=== PATIENT | female | born 1965 | race Caucasian/White ===

== ENCOUNTER → 2018-03-17 03:54 | Outpatient (CLI) | payer BC, SELFPAY ==
[2018-03-17 13:10] LABS: Hemoglobin A1C 7.1 % (4.5-6.2)
[2018-03-17 13:19] LABS: ALT 58 U/L (12-78); AST 53 U/L (15-37); Albumin 3.6 g/dL (3.4-5.0); Alkaline Phosphatase 64 U/L (46-116); Anion Gap 7.8 mmol/L (3-11); BUN 11 mg/dL (7-18); Bilirubin, Total 0.3 mg/dL (0.2-1.0); CO2 30.2 mmol/L (21.0-32.0); CREATININE 0.88 mg/dL (0.55-1.02); Calcium 8.8 mg/dL (8.5-10.1); Chloride 103 mmol/L (98-107); Glucose 132 mg/dL (70-100); Potassium 4.6 mmol/L (3.5-5.1); Sodium 141 mmol/L (136-145); TSH 2.73 uIU/mL (0.358-3.74); Total Protein 7.4 g/dL (6.4-8.2)
[2018-03-17 15:47] LABS: Cholesterol 169 mg/dL (50-200); HDL Cholesterol 44 mg/dL (40-60); LDL CHOLESTEROL 99 mg/dL (<100); Triglyceride 193 mg/dL (30-150)
== END ==
PROVIDERS: PCP Family Medicine; Visit Provider Family Medicine
DX: E11.9 Type 2 diabetes mellitus without complications (principal); E78.5 Hyperlipidemia, unspecified; E03.9 Hypothyroidism, unspecified
CPT/HCPCS: 36415; 80053; 80061; 83721; 83036; 84443

== ENCOUNTER → 2018-03-17 15:12 | Outpatient (REF) | payer BC, SELFPAY ==
[2018-03-17 15:55] LABS: COMMENT (LAB VIEW ONLY) 75.32 mg/dL; Microalb ug/mg Crea 6.8 ug/mg Cr
== END ==
LOC: LBN 15:12
PROVIDERS: PCP Family Medicine; Visit Provider Family Medicine
DX: E11.9 Type 2 diabetes mellitus without complications (principal); E78.5 Hyperlipidemia, unspecified; E03.9 Hypothyroidism, unspecified
CPT/HCPCS: 82043; 82570

== ENCOUNTER 2018-06-14 01:27 | Outpatient (CLI) | payer BC, SELFPAY ==
[2018-06-14 11:43] LABS: Cholesterol 159 mg/dL (50-200); HDL Cholesterol 45 mg/dL (40-60); LDL CHOLESTEROL 85 mg/dL (<100); Triglyceride 187 mg/dL (30-150)
[2018-06-14 12:47] LABS: Hemoglobin A1C 7.1 % (4.5-6.2)
== END 2018-06-14 01:47 ==
PROVIDERS: PCP Family Medicine; Visit Provider Family Medicine
DX: E11.9 Type 2 diabetes mellitus without complications (principal); E78.5 Hyperlipidemia, unspecified
CPT/HCPCS: 36415; 80061; 83721; 83036

== ENCOUNTER 2018-09-20 01:24 | Outpatient (CLI) | payer BC, SELFPAY ==
[2018-09-20 11:25] LABS: Hemoglobin A1C 6.6 % (4.5-6.2)
== END 2018-09-20 01:44 ==
PROVIDERS: PCP Family Medicine; Visit Provider Family Medicine
DX: E11.9 Type 2 diabetes mellitus without complications (principal)
CPT/HCPCS: 36415; 83036

== ENCOUNTER 2019-03-16 02:18 | Outpatient (CLI) | payer BC, SELFPAY ==
[2019-03-16 13:04] LABS: Hemoglobin A1C 6.8 % (4.5-6.2)
[2019-03-16 13:21] LABS: ALT 37 U/L (12-78); AST 25 U/L (15-37); Albumin 3.5 g/dL (3.4-5.0); Alkaline Phosphatase 69 U/L (46-116); Anion Gap 8.5 mmol/L (3-11); BUN 16 mg/dL (7-18); Bilirubin, Total 0.3 mg/dL (0.2-1.0); CO2 28.5 mmol/L (21.0-32.0); CREATININE 0.75 mg/dL (0.55-1.02); Calcium 8.6 mg/dL (8.5-10.1); Chloride 103 mmol/L (98-107); Glucose 128 mg/dL (70-100); Potassium 4.5 mmol/L (3.5-5.1); Sodium 140 mmol/L (136-145); TSH 2.93 uIU/mL (0.36-3.74); Total Protein 7.1 g/dL (6.4-8.2)
[2019-03-16 14:31] LABS: COMMENT (LAB VIEW ONLY) 53.32 mg/dL; Microalb ug/mg Crea 10.3 ug/mg Cr
== END 2019-03-16 02:38 ==
PROVIDERS: PCP Family Medicine; Visit Provider Family Medicine
DX: E11.9 Type 2 diabetes mellitus without complications (principal); E03.9 Hypothyroidism, unspecified
CPT/HCPCS: 36415; 80053; 82043; 82570; 83036; 84443

== ENCOUNTER 2019-04-05 03:49 | Outpatient (CLI) | payer BC, SELFPAY ==
--- NOTE | 2019-04-05 09:00 | DI.MAMMO_ITS ---
SYMPTOM/DIAGNOSIS: SCREENING Z12.31 MAMMOGRAM: 04/05 Mammograms were interpreted according to the usual protocol including computer analysis with CAD system, tomosynthesis and C view imaging. The breasts are of moderate density with fairly symmetrical distribution of fibroglandular tissue. No dominant mass or clumped microcalcification is identified in either breast. The current examination is a baseline examination. CONCLUSION: No specific evidence of malignancy at this time. Routine screening examinations are suggested at yearly intervals due to the family history of breast carcinoma. Category 1, breast density category B. MQSA ASSESSMENT OF FINDINGS: Negative. Category 1. Patient will receive a letter notifying them of these results. BI-RADS category B. There are scattered areas of fibroglandular density.
== END 2019-04-05 04:09 ==
PROVIDERS: PCP Family Medicine; Visit Provider Family Medicine
DX: Z80.3 Family history of malignant neoplasm of breast
CPT/HCPCS: 77063; 77067

== ENCOUNTER 2019-07-18 01:20 | Outpatient (CLI) | payer BC, SELFPAY ==
[2019-07-18 09:48] LABS: Calculated LDL 69 mg/dL; Cholesterol 140 mg/dL (<200); HDL Cholesterol 40 mg/dL (40-60); Triglyceride 159 mg/dL (<150)
== END 2019-07-18 01:40 ==
PROVIDERS: PCP Family Medicine; Visit Provider Family Medicine
DX: E11.9 Type 2 diabetes mellitus without complications (principal)
CPT/HCPCS: 36415; 80061; 83036

== ENCOUNTER 2019-09-24 08:55 | Day surgery (SDC) | payer BC, SELFPAY ==
[2019-09-24 09:02] VITALS: BP 135/97; PULSE 100; RESP 18; TEMP 36.4; O2SAT 96
[2019-09-24] MEDS: Lidocaine 2% Multi-Dose 50 ML VIAL (13:53)
--- NOTE | 2019-09-24 14:09 | W.PM.DSUDISC ---
Discharge Plan Disposition Patient Disposition: HOME Condition: Good Discharge Details Reason For Visit: (L) TRIGGER THUMB Attending Provider: Joe Kaur Primary Care Provider: Earlene Blanco Home Meds and New Rx's Prescriptions: Continued omeprazole 20 mg capsule,delayed release(DR/EC) 20 mg PO DAILY Qty: 90 RF: 3 semaglutide 0.25 mg or 0.5 mg(2 mg/1.5 mL) pen injector 0.25 - 0.5 mg SC QWEEK Qty: 1.5 RF: 4 budesonide 32 mcg/actuation spray,non-aerosol 2 spray BUTCH DAILY Qty: 8.43 RF: 6 pravastatin 80 mg tablet 80 mg PO DAILY Qty: 90 RF: 4 (DME) pen needle, diabetic [Comfort EZ Pen Rembrandt] 31 gauge x 1/4 needle See Dose Instructions .ROUTE .MEDSUPPLY Qty: 100 RF: 2 (DME) lancets [OneTouch UltraSoft Lancets] misc See Dose Instructions .ROUTE .MEDSUPPLY Qty: 100 RF: 4 lisinopril 10 mg tablet 10 mg PO DAILY Qty: 90 RF: 4 levothyroxine 100 mcg tablet 100 mcg PO DAILY Qty: 90 RF: 4 (DME) OneTouch Verio Strip See Dose Instructions .ROUTE .MEDSUPPLY Qty: 100 RF: 2 (DME) blood-glucose meter Misc See Rx Instructions .ROUTE .MEDSUPPLY Qty: 1 RF: 0 Discharge Instructions Additional Instructions: Bend and straighten L thumb 10 times/hour when awake to prevent stiffness and swelling. Keep dressings dry and in place for 48 hours. Remove dressings after 48hours. May then shower or bathe and get incision wet. May leave incision uncovered when it is dry and sealed. Follow up with in 2 weeks for suture removal. Take tylenol or ibuprofen for pain. Referrals: Joe Kaur MD [ [facility] STAFF PHYSICIAN] - (f/u in 2 weeks.) Activity:: Activity as Tolerated Remove Dressings/Wound Care:: 48 hours Shower/Bathe:: 48 hours Diet:: As Tolerated Discharge Orders Discharge Orders: Discharge Order (Routine); Ordered 09/24/19 Ordered By: Joe Kaur DS: Diagnosis Discharge Diagnosis (1) Trigger thumb of left hand: Status: Acute
--- NOTE | 2019-09-24 16:28 | ROE_ITS ---
DATE OF PROCEDURE: September 24, 2019 PREOPERATIVE DIAGNOSIS: Trigger left thumb. POSTOPERATIVE DIAGNOSIS: Same. PROCEDURE: Tendon sheath incision for trigger left thumb. ANESTHESIA: Local infiltration with 1% Xylocaine solution followed by 0.5% Marcaine with an epinephr ine solution. SURGEON: Joe Kaur M.D. INDICATIONS: This is a 54-year-old white female with a painful left thumb. She said she began havin g pain associated with triggering of the thumb. This progressed to the point where her thumb was ji nful and she could not flex her thumb at all. She could also not extend it because of the pain. It was felt that the patient was getting so much swelling in the flexor tendon that the tendon was stuck in the proximal portion of the flexor sheath. The only way to correct this would be to incise the p roximal ko to allow the tendon to glide and slide without catching. The risks and complications of the procedure were explained to the patient in detail preoperatively. PROCEDURE: The patient was taken to the operating room on 09/24/2019. She was placed supine on the o perating table. The left hand and wrist were prepped and draped free in the usual sterile fashion. I infiltrated over the proximal flexion crease of the thumb with 1% Xylocaine solution. I then made an incision in line with the proximal flexion crease of the thumb, centered over the flexor sheath. The incision was carried down to the subcutaneous tissue. Blunt-tipped Littler scissors were then us ed to mobilize the soft tissues and digital nerve away from the proximal ko of the thumb. Small Heiss self-retraining retractors were inserted and the proximal ko of the flexor sheath of the th umb was clearly visualized. I incised the sheath under direct vision. I then extended the release o f the proximal ko proximally and distally with Littler scissors, completely releasing the proxima l ko of the flexor sheath. The retractors were removed and the patient was asked to actively fle x and extend her left thumb. She was now able to actively flex and extend her left thumb fully witho ut restriction or triggering. The wound was irrigated with saline solution. The wound margins were infiltrated with 0.5% Marcaine with an epinephrine solution and the skin edges were approximated with three interrupted #4-0 nylon sutures. The wound was dressed with Xeroform gauze, sterile gauze 4x4' s, wrapped with a 2-inch Marta bandage for a light pressure dressing. The patient tolerated the proc edure well and was discharged to the Day Surgery Unit in good condition. The patient was discharged home from the Day Surgery Unit with instructions to flex and extend her le ft thumb ten times an hour while awake to prevent swelling and decrease pain. Because of various ralf g sensitivities and medical conditions, she cannot take Tylenol or NSAID's. She was therefore instru cted to take 1 to 2 aspirin every four hours, as needed, for pain. She is to keep her dressings dry for 48 hours. After 48 hours she can remove her dressings, shower or bathe and get her incision wet. She can leave the incision uncovered when it is dry and sealed. She may use her left hand as much as discomfort allows. She should follow-up with Dr. Kaur in two weeks for suture removal in the of ayan.
== END 2019-09-24 14:31 | disposition home or self-care (01) ==
PROVIDERS: PCP Family Medicine; Visit Provider Orthopaedic Surgery
PROC: (CPT 26055; principal; 2019-09-24 10:00)
DX: M65.312 Trigger thumb, left thumb (principal)
CPT/HCPCS: 26055

== ENCOUNTER 2019-10-24 02:03 | Outpatient (CLI) | payer BC, SELFPAY ==
[2019-10-24 11:36] LABS: ALT 45 U/L (14-59); AST 25 U/L (15-37); Albumin 3.8 g/dL (3.4-5.0); Alkaline Phosphatase 66 U/L (46-116); Anion Gap 7.8 mmol/L (3-11); BUN 13 mg/dL (7-18); Bilirubin, Total 0.3 mg/dL (0.2-1.0); CO2 30.2 mmol/L (21.0-32.0); CREATININE 0.78 mg/dL (0.55-1.02); Calcium 9.4 mg/dL (8.5-10.1); Chloride 103 mmol/L (98-107); Glucose 133 mg/dL (74-106); Hemoglobin A1C 6.7 % (3.8-5.6); Potassium 4.8 mmol/L (3.5-5.1); Sodium 141 mmol/L (136-145); Total Protein 7.4 g/dL (6.4-8.2)
== END 2019-10-24 02:23 ==
PROVIDERS: PCP Family Medicine; Visit Provider Family Medicine
DX: E11.9 Type 2 diabetes mellitus without complications (principal)
CPT/HCPCS: 36415; 80053; 83036

== ENCOUNTER 2019-11-21 00:50 | Outpatient (CLI) | payer BC, SELFPAY ==
--- NOTE | 2019-11-21 07:45 | DI.RAD_ITS ---
EXAM: XR KNEE LT 3V AP,LAT,LUDIN CLINICAL HISTORY: acute on chronic left knee pain, h/o ACL repair,M25.562,G89.29. TECHNIQUE: 2D digital imaging was performed. COMPARISON: RIGHT KNEE 3 VIEWS from 05/21/2013 FINDINGS: BONES: No acute fracture is present. No bony destructive lesion is seen. Hardware in the distal femu r and proximal tibia related to prior ACL repair. There is spurring from the femoral condyles and ti bial plateaus. JOINTS: There is mild narrowing of the femoral tibial joint spaces. The knee is normally aligned. No joint effusion is seen. SOFT TISSUE: Normal. IMPRESSION: Postsurgical and degenerative changes.. DATA REPOSITORY: RADIATION DOSE DELIVERED:
== END 2019-11-21 01:10 ==
PROVIDERS: PCP Family Medicine; Visit Provider Nurse Practitioner Family
DX: M25.562 Pain in left knee (principal); G89.29 Other chronic pain; Z98.890 Other specified postprocedural states; M17.12 Unilateral primary osteoarthritis, left knee
CPT/HCPCS: 73562

== ENCOUNTER 2019-12-11 09:40 | Outpatient (CLI) | payer BC, SELFPAY ==
--- NOTE | 2019-12-11 10:03 | DI.RAD_ITS ---
EXAM: XR KNEE LT 1V CLINICAL HISTORY: pain TECHNIQUE: COMPARISON: CR XR KNEE LT 3V AP,LAT,LUDIN from 11/21/2019 FINDINGS: Single AP view was obtained and shows prior ACL repair with fixation screws in the tibia femur. Ther e are degenerative changes seen involving the tibial femoral joints with mild loss of the cartilagino us joint space and moderate hypertrophic spurring of the joint margins. IMPRESSION:
== END 2019-12-11 10:00 ==
PROVIDERS: PCP Family Medicine; Visit Provider Orthopaedic Surgery
DX: M25.562 Pain in left knee (principal); M17.12 Unilateral primary osteoarthritis, left knee
CPT/HCPCS: 73560

== ENCOUNTER 2020-07-02 03:28 | Outpatient (CLI) | payer BC, SELFPAY ==
[2020-07-02 12:28] LABS: COMMENT (LAB VIEW ONLY) 85.25 mg/dL; Microalb ug/mg Crea 10.1 ug/mg Cr
[2020-07-02 12:35] LABS: Hemoglobin A1C 7.2 % (<5.7)
[2020-07-02 12:40] LABS: ALT 45 U/L (14-59); AST 32 U/L (15-37); Albumin 3.8 g/dL (3.4-5.0); Alkaline Phosphatase 83 U/L (46-116); Anion Gap 9.5 mmol/L (3-11); BUN 18 mg/dL (7-18); Bilirubin, Total 0.3 mg/dL (0.2-1.0); CO2 27.5 mmol/L (21.0-32.0); CREATININE 0.83 mg/dL (0.55-1.02); Calcium 9.1 mg/dL (8.5-10.1); Calculated LDL 83 mg/dL (<100); Chloride 105 mmol/L (98-107); Cholesterol 180 mg/dL (<200); Glucose 143 mg/dL (74-106); HDL Cholesterol 47 mg/dL (40-60); Potassium 4.5 mmol/L (3.5-5.1); Sodium 142 mmol/L (136-145); TSH 3.76 uIU/mL (0.36-3.74); Total Protein 7.5 g/dL (6.4-8.2); Triglyceride 254 mg/dL (<150)
== END 2020-07-02 03:48 ==
PROVIDERS: PCP Family Medicine; Visit Provider Family Medicine
DX: E11.9 Type 2 diabetes mellitus without complications (principal); E03.9 Hypothyroidism, unspecified; E83.42 Hypomagnesemia
CPT/HCPCS: 36415; 80053; 80061; 82043; 82570; 83036; 83735; 84443

== ENCOUNTER 2020-07-07 09:44 | Outpatient (REF) | payer BC, SELFPAY ==
--- NOTE | 2020-07-07 09:00 | PAPFT_PTH ---
PATIENT: Cathleen Carter LOC: [facility] U#:[id number] AGE/SX: 55/F ROOM: RE07/07/[address]: Earlene Blanco MD : 1965 BED: DIS: 07/07/2020 SPEC #: [id number] RECD: 07/07/20 12:53 STATUS: MYLES REOmid #: [id number] JI: 07/07/20 09:[address]: Earlene Blanco DEPT: [facility] Cytology RECD BY: Deepa Novoa Tissues: 1 - CX/ENDOCX FOR PAP SMEARS Procedures: PAP THIN PREP/UVM Screening HPV DNA PROBE Comments: [id number]
== END 2020-07-07 10:04 ==
LOC: LBN 09:44
PROVIDERS: PCP Family Medicine; Visit Provider Family Medicine
DX: Z12.4 Encounter for screening for malignant neoplasm of cervix (principal); Z11.51 Encounter for screening for human papillomavirus (HPV)
CPT/HCPCS: 88142; 87624

== ENCOUNTER 2020-09-25 18:51 | Outpatient (CLI) | payer BC, SELFPAY ==
[2020-09-25 13:51] LABS: CREATININE 0.8 mg/dL (0.55-1.02); TSH 2.87 uIU/mL (0.36-3.74)
[2020-09-25 13:59] LABS: Hemoglobin A1C 7.6 % (<5.7)
[2020-09-25] MEDS: Normal Saline - Diluent 50 ML VIAL IV (15:20)
[2020-09-25] MEDS: Omnipaque 350 MG/ML 100 ML BTL IJ (15:24)
--- NOTE | 2020-09-25 15:25 | DI.CT_ITS ---
EXAM: CT HEAD WO/W CLINICAL HISTORY: PRESSURE IN HEAD,R51.9. TECHNIQUE: Imaging Protocol: Both noninfused and contrast infused CT scans of the brain were perform ed. IV Contrast Dose =100 cc Axial computed tomography images with coronal and sagittal reformatted images were created and review ed COMPARISON: No exams were available for comparison FINDINGS: There are no skull fractures nor fluid in the visualized paranasal sinuses. There is no evidence of intracranial hemorrhage, mass effect, or shift of midline structures. There are no extra-axial fluid collections. The ventricles are not enlarged or shifted and there is no blo od within the ventricular system nor within the basal cisterns. There are no ring enhancing lesions in the brain and there is no abnormal meningeal enhancement, foca l or diffuse. No evidence of obvious aneurysm nor vascular malformation. IMPRESSION: No significant intracranial findings. No significant enhancing intracranial findings. RADIATION DOSE DELIVERED: 1,523.06mGy.cm Total DLP DATA REPOSITORY: All CT scans at this facility are submitted to the National Radiology Data Registry (NRDR) Dose Index Registry (DIR) with the [employer] ([employer]). RADIATION OPTIMIZATION: All CT scans at this facility use at least one of these dose optimization te chniques: automated exposure control; mA and/or kV adjustment per patient size (includes targeted exa ms where dose is matched to clinical indication); or iterative reconstruction.
== END 2020-09-25 18:52 ==
PROVIDERS: PCP Family Medicine; Visit Provider Otolaryngology
DX: R51.9 Headache, unspecified (principal); E11.9 Type 2 diabetes mellitus without complications; E03.9 Hypothyroidism, unspecified
CPT/HCPCS: 70470; 82565; 83036; 84443; J3490

== ENCOUNTER 2020-11-24 09:33 | Outpatient (CLI) | payer BC, SELFPAY ==
[2020-11-25 12:48] LABS: COVID-19 RT-PCR UVMMC Result Negative (Negative)
== END 2020-11-24 09:34 | disposition home or self-care (01) ==
PROVIDERS: PCP Family Medicine; Visit Provider Family Medicine
DX: Z20.822 Contact with and (suspected) exposure to COVID-19 (principal)
CPT/HCPCS: U0003

== ENCOUNTER 2021-01-26 03:19 | Outpatient (CLI) | payer BC, SELFPAY ==
[2021-01-26 12:50] LABS: Hemoglobin A1C 8.4 % (<5.7)
[2021-01-26 13:39] LABS: BUN 15 mg/dL (7-18); CREATININE 0.8 mg/dL (0.55-1.02); Calcium 9.2 mg/dL (8.5-10.1); Chloride 103 mmol/L (98-107); Glucose 199 mg/dL (74-106); Potassium 4.5 mmol/L (3.5-5.1); Sodium 141 mmol/L (136-145)
== END 2021-01-26 03:20 | disposition home or self-care (01) ==
LOC: LOS 03:20
PROVIDERS: PCP Family Medicine; Visit Provider Family Medicine
DX: E11.9 Type 2 diabetes mellitus without complications (principal)
CPT/HCPCS: 36415; 80048; 83036

== ENCOUNTER 2021-04-23 01:34 | Outpatient (CLI) | payer BC, SELFPAY ==
[2021-04-23 12:51] LABS: ALT 47 U/L (14-59); AST 29 U/L (15-37); Albumin 3.3 g/dL (3.4-5.0); Alkaline Phosphatase 67 U/L (46-116); Anion Gap 7.4 mmol/L (3-11); BUN 15 mg/dL (7-18); Bilirubin, Total 0.4 mg/dL (0.2-1.0); CO2 29.6 mmol/L (21.0-32.0); CREATININE 0.8 mg/dL (0.55-1.02); Calcium 8.8 mg/dL (8.5-10.1); Chloride 106 mmol/L (98-107); Glucose 139 mg/dL (74-106); Potassium 4.4 mmol/L (3.5-5.1); Sodium 143 mmol/L (136-145); Total Protein 6.8 g/dL (6.4-8.2)
[2021-04-23 13:07] LABS: Hemoglobin A1C 7.7 % (<5.7)
[2021-04-23 13:49] LABS: COMMENT (LAB VIEW ONLY) 157.94 mg/dL; Microalb ug/mg Crea 15.1 ug/mg Cr
== END 2021-04-23 01:35 | disposition home or self-care (01) ==
LOC: LOS 01:34
PROVIDERS: PCP Family Medicine; Visit Provider Family Medicine
DX: E11.9 Type 2 diabetes mellitus without complications (principal)
CPT/HCPCS: 36415; 80053; 82043; 82570; 83036

== ENCOUNTER 2021-07-01 01:29 | Outpatient (CLI) | payer BC, SELFPAY ==
[2021-07-01 13:31] LABS: Hemoglobin A1C 7.2 % (<5.7)
[2021-07-01 13:58] LABS: Calculated LDL 94 mg/dL (<100); Cholesterol 176 mg/dL (<200); HDL Cholesterol 46 mg/dL (40-60); TSH 5.21 uIU/mL (0.36-3.74); Triglyceride 183 mg/dL (<150); Vitamin B12 488 pg/mL (193-986)
== END 2021-07-01 01:30 | disposition home or self-care (01) ==
LOC: LOS 01:30
PROVIDERS: PCP Family Medicine; Visit Provider Family Medicine
DX: E03.9 Hypothyroidism, unspecified; E78.5 Hyperlipidemia, unspecified; E11.9 Type 2 diabetes mellitus without complications; G62.9 Polyneuropathy, unspecified
CPT/HCPCS: 36415; 80061; 82607; 83036; 84443

== ENCOUNTER 2021-08-10 01:57 | Outpatient (CLI) | payer BC, SELFPAY | END 2021-08-10 02:17 | PROVIDERS: PCP Family Medicine; Visit Provider Family Medicine ==

== ENCOUNTER 2021-08-21 01:51 | Outpatient (CLI) | payer BC, SELFPAY ==
[2021-08-21 13:48] LABS: TSH 2.11 uIU/mL (0.36-3.74)
== END 2021-08-21 01:52 | disposition home or self-care (01) ==
LOC: LBO 01:51
PROVIDERS: PCP Family Medicine; Visit Provider Family Medicine
DX: E03.9 Hypothyroidism, unspecified (principal)
CPT/HCPCS: 36415; 84443

== ENCOUNTER → 2022-04-20 01:06 | Outpatient (CLI) | payer BC, SELFPAY ==
--- NOTE | 2022-04-20 07:00 | DI.MAMMO_ITS ---
Exam(s) MG MAMMO SCREENING 60 MIN DUR EXAM: MG MAMMO SCREENING 60 MIN DUR CLINICAL HISTORY: screening,z12.39. TECHNIQUE: Bilateral full field digital CC and MLO mammographic images were obtained with 3D tomosyn thesis and utilizing computer aided detection (CAD). COMPARISON: Prior mammograms were reviewed, the most recent being April 2019. FINDINGS: There has been no significant change in the appearance and distribution of the fibroglandular tissue which is mostly fatty. In the right breast there is a small benign-appearing group of my 3 microcalcifications located later al of center, not evident on prior mammogram of 2019 (which is the most recent mammogram). This grou p has benign appearance. It is possibly within a small nodule (which would probably be a small fibro adenoma). No other significant right breast findings. In the opposite-left breast there are 2 small round nodules seen on 3D cc imaging lateral of center w hich were not evident on the prior 2019 mammogram. These both measure 3 millimeters. There are no new spiculated masses in either breast. There is no new significant architectural distortion nor skin thickening-retraction. IMPRESSION: New benign-appearing findings in both breasts as described above. Recommend follow-up bilateral fabricio st ultrasound. BI-RADS Category 0 - Assessment Incomplete: Need additional imaging evaluation Breast Density - Category B - Scattered areas of fibroglandular density Breast density Category C or D implies that the patient has dense breast tissue. Dense breast tissue can make it harder to find cancer on a mammogram. Dense breast tissue is also associated with an incr eased risk of breast cancer. This information about the result of the mammogram report was provided to the patient to raise their awareness. Use this report when you speak with the patient about their risks for breast cancer, which includes their family history. At that time, you may recommend additional screening tests (Ultrasoun d or MRI) as these tests may add significant information. A negative radiographic report should not delay biopsy if a dominant or clinically suspicious mass is present. Up to ten percent of cancers are not identified on mammography. A negative report may reinforce clinical impression. Adenosis and dense breasts may obscure an underlying neoplasm. False positive reports average 6 to 10%. Patient will receive a letter notifying them of these results.
== END ==
PROVIDERS: PCP Nurse Practitioner Family; Visit Provider Family Medicine
DX: Z12.31 Encounter for screening mammogram for malignant neoplasm of breast (principal); R92.8 Other abnormal and inconclusive findings on diagnostic imaging of breast
CPT/HCPCS: 77063; 77067

== ENCOUNTER → 2022-04-29 03:37 | Outpatient (CLI) | payer BC, SELFPAY ==
--- NOTE | 2022-04-29 | DI.US_ITS ---
Exam(s) MG MAMMO DIAGNOSTIC UNI US BREAST RT LIMITED US BREAST LT LIMITED EXAM: MG MAMMO DIAGNOSTIC UNI and U/S breast bilateral limited CLINICAL HISTORY: RT BREAST CC PER RADIOLOGIST AFTER US. TECHNIQUE: Craniocaudal and mediolateral oblique Full Field Digital Mammography views of the right b reast with Computer Aided Diagnosis followed by Tomosynthesis and bilateral breast ultrasound. COMPARISON: Comparison is made with prior examinations. FINDINGS: Mammography/Tomosynthesis: Masses/Architectural Distortion: Additional view of the right breast shows 3 punctate benign-appearin g calcifications. There is persistent suggestion of of an associated small round well-circumscribed 3 mm nodule. Microcalcifictions: No suspicious pleomorphic-type are seen. Skin Thickening/Nipple Retraction: None. Limited bilateral breast US: No cystic or solid masses are seen in the left breast. Echotexture: Normal appearance of the glandular tissue. Shadowing: No suspicious foci. Cyst: None. Solid lesions: There is a 0.5 x 0.5 x 0.7 cm well-circumscribed hyperechoic nodule in the upper outer quadrant of the right breast. Its appearance is suggestive of a benign lesion such as a lipoma. Ductal dilation: None. IMPRESSION: 1. No evidence of malignancy is noted. 2. A six-month follow-up mammogram is requested for re-evaluation. 3. The findings were discussed with the patient on the date of the examination. BI-RADS Category 3 - 6 month - Probably Benign Finding: Recommend follow-up imaging in 6 months Breast Density - Category B - Scattered areas of fibroglandular density Breast density Category C or D implies that the patient has dense breast tissue. Dense breast tissue can make it harder to find cancer on a mammogram. Dense breast tissue is also associated with an incr eased risk of breast cancer. This information about the result of the mammogram report was provided to the patient to raise their awareness. Use this report when you speak with the patient about their risks for breast cancer, which includes their family history. At that time, you may recommend additional screening tests (Ultrasoun d or MRI) as these tests may add significant information. A negative radiographic report should not delay biopsy if a dominant or clinically suspicious mass is present. Up to ten percent of cancers are not identified on mammography. A negative report may reinforce clinical impression. Adenosis and dense breasts may obscure an underlying neoplasm. False positive reports average 6 to 10%. Patient will receive a letter notifying them of these results.
== END ==
PROVIDERS: PCP Nurse Practitioner Family; Visit Provider Family Medicine
DX: Z12.31 Encounter for screening mammogram for malignant neoplasm of breast (principal); R92.8 Other abnormal and inconclusive findings on diagnostic imaging of breast; N63.11 Unspecified lump in the right breast, upper outer quadrant
CPT/HCPCS: 76642; 77061; 77065; G0279

== ENCOUNTER 2022-05-26 03:30 | Outpatient (CLI) | payer BC, SELFPAY ==
[2022-05-26 12:46] LABS: ALT 69 U/L (14-59); AST 52 U/L (15-37); Albumin 3.3 g/dL (3.4-5.0); Alkaline Phosphatase 73 U/L (46-116); Anion Gap 6.7 mmol/L (3-11); BUN 7 mg/dL (7-18); Bilirubin, Total 0.6 mg/dL (0.2-1.0); CO2 28.3 mmol/L (21.0-32.0); CREATININE 0.8 mg/dL (0.55-1.02); Calcium 8.9 mg/dL (8.5-10.1); Calculated LDL 80 mg/dL (<100); Chloride 104 mmol/L (98-107); Cholesterol 152 mg/dL (<200); Estimated GFR 85.35 (mL/min/1.73m2); Glucose 159 mg/dL (74-106); HDL Cholesterol 46 mg/dL (40-60); Potassium 3.7 mmol/L (3.5-5.1); Sodium 139 mmol/L (136-145); TSH (W/Ref FT4) 3.22 uIU/mL (0.36-3.74); Total Protein 7.5 g/dL (6.4-8.2); Triglyceride 132 mg/dL (<150)
[2022-05-26 12:49] LABS: COMMENT (LAB VIEW ONLY) 144.64 mg/dL; Microalb ug/mg Crea 3.7 ug/mg Cr
[2022-05-27 08:57] LABS: HIV-1/2 Ag & Ab Screen Negative (Negative)
[2022-05-27 09:22] LABS: Hepatitis C Ab w Rflx HCV PCR Negative (Negative)
== END 2022-05-26 03:31 | disposition home or self-care (01) ==
LOC: LOS 03:30
PROVIDERS: PCP Nurse Practitioner Family; Visit Provider Family Medicine
DX: I10 Essential (primary) hypertension (principal); E03.9 Hypothyroidism, unspecified; E11.9 Type 2 diabetes mellitus without complications; I87.2 Venous insufficiency (chronic) (peripheral); Z11.59 Encounter for screening for other viral diseases; Z11.4 Encounter for screening for human immunodeficiency virus [HIV]
CPT/HCPCS: 36415; 80053; 80061; 86803; 87389; 82043; 82570; 83036; 84443

== ENCOUNTER 2022-06-08 06:13 | Day surgery (SDC) | payer BC, SELFPAY ==
[2022-06-08 06:31] VITALS: BP 131/81; PULSE 100; RESP 20; TEMP 36.4; O2SAT 95
--- NOTE | 2022-06-08 07:16 | W.PM.DSUDISC ---
Date of service: 06/08/22 Time of Service: 07:18 Discharge Plan Disposition Patient Disposition: HOME Condition: Good Discharge Details Reason For Visit: Right trigger thumb Attending Provider: Micah Bear Primary Care Provider: Ernestina Rey Home Meds and New Rx's Prescriptions: Continued aspirin 81 mg tablet,delayed release (DR/EC) 81 mg PO DAILY Qty: 30 0RF Rx Instructions: not sent pravastatin 80 mg tablet 80 mg PO DAILY Qty: 90 3RF Rx Instructions: /take one tablet daily omeprazole 20 mg capsule,delayed release(DR/EC) 20 mg PO DAILY Qty: 90 3RF levothyroxine 125 mcg tablet 125 mcg PO DAILY Qty: 90 3RF (DME) pen needle, diabetic [Comfort EZ Pen [place]] 31 gauge x 1/4 needle See Dose Instructions .ROUTE .MEDSUPPLY Qty: 100 2RF Dose Instruction: As directed Rx Instructions: As directed (DME) blood-glucose meter Misc See Rx Instructions .MEDSUPPLY Qty: 1 0RF Rx Instructions: One Touch Ultra Soft lancing device/ use daily as directed (DME) OneTouch Verio test strips Strip See Dose Instructions .ROUTE .MEDSUPPLY Qty: 100 4RF Dose Instruction: As directed Rx Instructions: check blood sugar bid (DME) lancets [OneTouch Delica Lancets] 33 gauge misc See Rx Instructions .ROUTE .MEDSUPPLY Qty: 100 4RF Rx Instructions: DX. E11.9/ test once daily/extra fine lancets lisinopril 10 mg tablet 10 mg PO DAILY Qty: 90 4RF lidocaine 5 % adhesive patch,medicated 1 patch TP DAILY PRN (Reason: pain) Qty: 30 0RF Rx Instructions: Leave on most painful area for up to 12hrs semaglutide 2 mg/dose (8 mg/3 mL) pen injector 2 mg subcut QWEEK Qty: 3 3RF Discharge Instructions Stand Alone Forms: Marianela Estes Finger Mo Activity:: Elevate Remove Dressings/Wound Care:: 48 hours Shower/Bathe:: 48 hours Diet:: As Tolerated Discharge Orders Discharge Orders: Discharge Order (Routine); Ordered 06/08/22 Ordered By: Gissel Sumner
[2022-06-08] MEDS: Sodium Bicarbonate 50 MEQ/50 ML VIAL (07:33)
[2022-06-08 07:43] VITALS: BP 128/82; PULSE 99; RESP 18; TEMP 36.6; O2SAT 93
--- NOTE | 2022-06-08 16:59 | W.PM.OP ---
Date of service: 06/08/22 Time of Service: 07:40 Operative Note Operative Note DATE OF PROCEDURE: 06/08/22 PRE-OP DIAGNOSIS: Right Trigger Thumb POST-OP DIAGNOSIS: same PROCEDURE: Trigger Finger Release - Right Thumb SURGEON: Micah Bear ANESTHESIA TYPE: Local By Surgeon Refer to Anesthesia Record ESTIMATED BLOOD LOSS: 0 PATHOLOGY: none sent COMPLICATIONS: None Patient was transported to: same day Patient's condition: stable Indications: I have seen Cathleen in clinic for symptoms of a trigger finger. The catching, clicking, locking, and pain limited function. The diagnosis of trigger finger was evident. The symptoms had not responded to conservative measures. I discussed trigger finger release with the patient. I reviewed the risks of the procedure to include, but not limited to, bleeding, infection, pain, stiffness, incomplete release, damage to nerves or vessels, continued catching, recurrence. Despite these risks, the patient elected to proceed. Findings: There was a tightened A1 ko which was released. The flexor tendons were inspected and the patient was able to move the finger without any catching, clicking, or locking. Procedure Description: Cathleen was greeted in the preoperative holding area where the correct side was identified and marked. The consent was reviewed with the patient and signed. All questions were answered. She was taken back to the operating room. The patient was placed into the supine position on the operating room table with the right arm on an arm board. All bony prominences were well padded. No prophylactic antibiotics were administered since this was a clean, elective hand surgical case. The right arm was then prepped with Chloraprep and draped in a standard fashion with stockinette and extremity drape. A timeout to confirm correct identity, side and site, procedure, allergies, anesthesia, and medical concerns was performed. The surgical site was marked as a longitudinal incision directly over the A1 ko of the involved digit. This was confirmed with palpation during finger flexion. This area, overlying the metacarpal head, was then anesthetized with 1% Lidocaine. The patient tolerated this well and once the anesthetic had setup, the procedure began. A longitudinal incision was made through skin only, approximately 1cm. The deep tissues were dissected bluntly. Once the A1 ko and flexor tendons were identified the soft tissue including neurovascular structures were retracted medially and laterally. There were no crossing structures over the A1 ko. The proximal edge of the ko was identified and the ko was incised with tenotomy scissors. There was a release of the tendons once this was fully released. The tendons were then removed from the wound and inspected. Excess synovium was resected. The tendons were then returned and the patient was asked to move the finger into deep flexion and back to extension. There was no recreation of the pre-operative symptoms. The hand was then once more inspected for any A0 ko or area of possible constriction. The wound was then irrigated and the skin was closed with a 4-0 Nylon. This was dressed with gauze and a Conform dressing. The patient tolerated the procedure well and was returned to the Same Day Surgery area in a stable condition suffering no known complication.
== END 2022-06-08 08:17 | disposition home or self-care (01) ==
PROVIDERS: PCP Nurse Practitioner Family; Visit Provider Student in an Organized Health Care Education/Training Program
PROC: (CPT 26055; principal; 2022-06-08 07:30)
DX: M65.311 Trigger thumb, right thumb (principal)
CPT/HCPCS: 26055

== ENCOUNTER 2022-10-15 00:02 | Outpatient (CLI) | payer BC, SELFPAY ==
--- NOTE | 2022-10-15 07:38 | DI.US_ITS ---
Exam(s) US BREAST RT LIMITED MG MAMMO DIAGNOSTIC BI EXAM: MG MAMMO DIAGNOSTIC BI and U/S breast RT limited CLINICAL HISTORY: abnormal mammo 3-6 mo,r92.8,z09, rt breast nodule. TECHNIQUE: Craniocaudal and mediolateral oblique Full Field Digital Mammography views with Computer Aided Diagnosis followed by Tomosynthesis and right breast ultrasound. COMPARISON: Comparison is made with prior examinations. FINDINGS: Mammography/Tomosynthesis: Masses/Architectural Distortion: No suspicious nodules are seen. Microcalcifictions: No suspicious pleomorphic-type are seen. The 3 punctate calcifications in the upp er outer right breast are stable. Skin Thickening/Nipple Retraction: None. Limited right breast US: Echotexture: Normal appearance of the glandular tissue. Shadowing: The 2 calcifications at the 10 o'clock position of the right breast 8 cm from the nipple a re unchanged. Cyst: None. Solid lesions: The well-circumscribed ovoid echogenic nodule at the 10 o'clock position 8 cm from the nipple is unchanged measuring 0.5 x 0.4 x 0.7 cm. It is most suggestive of a benign lesion such as lipoma. Ductal dilation: None. IMPRESSION: 1. No evidence of malignancy is noted. 2. Unless there is more urgent need, follow-up screening mammography is recommended, as per [employer] guidelines. 3. The findings were discussed with the patient on the date of the examination. BI-RADS Category 2 - Benign Findings Breast Density - Category A - Almost entirely fatty Breast density Category C or D implies that the patient has dense breast tissue. Dense breast tissue can make it harder to find cancer on a mammogram. Dense breast tissue is also associated with an incr eased risk of breast cancer. This information about the result of the mammogram report was provided to the patient to raise their awareness. Use this report when you speak with the patient about their risks for breast cancer, which includes their family history. At that time, you may recommend additional screening tests (Ultrasoun d or MRI) as these tests may add significant information. A negative radiographic report should not delay biopsy if a dominant or clinically suspicious mass is present. Up to ten percent of cancers are not identified on mammography. A negative report may reinforce clinical impression. Adenosis and dense breasts may obscure an underlying neoplasm. False positive reports average 6 to 10%. Patient will receive a letter notifying them of these results.
== END 2022-10-15 00:22 ==
LOC: DI 00:02
PROVIDERS: PCP Nurse Practitioner Family; Visit Provider Family Medicine
DX: R92.8 Other abnormal and inconclusive findings on diagnostic imaging of breast (principal); N63.11 Unspecified lump in the right breast, upper outer quadrant; R92.1 Mammographic calcification found on diagnostic imaging of breast; D24.1 Benign neoplasm of right breast
CPT/HCPCS: 76642; 77062; 77066; G0279

== ENCOUNTER 2023-05-31 02:46 | Outpatient (CLI) | payer BC, SELFPAY ==
[2023-05-31 12:40] LABS: Hemoglobin A1C 6.9 % (<5.7)
== END 2023-05-31 02:47 | disposition home or self-care (01) ==
PROVIDERS: PCP Nurse Practitioner Family; Visit Provider Nurse Practitioner Family
DX: E11.40 Type 2 diabetes mellitus with diabetic neuropathy, unspecified (principal)
CPT/HCPCS: 36415; 83036

== ENCOUNTER 2023-08-23 03:46 | Outpatient (CLI) | payer BC, SELFPAY ==
[2023-08-23 15:28] LABS: Anion Gap 7.8 mmol/L (3-11); BUN 12 mg/dL (7-18); CO2 28.2 mmol/L (21.0-32.0); CREATININE 0.9 mg/dL (0.55-1.02); Calcium 9.2 mg/dL (8.5-10.1); Calculated LDL 78 mg/dL (<100); Chloride 102 mmol/L (98-107); Cholesterol 167 mg/dL (<200); Estimated GFR 73.64 (mL/min/1.73m2); Glucose 187 mg/dL (74-106); HDL Cholesterol 54 mg/dL (40-60); Potassium 3.9 mmol/L (3.5-5.1); Sodium 138 mmol/L (136-145); TSH (W/Ref FT4) 1.64 uIU/mL (0.36-3.74); Triglyceride 177 mg/dL (<150)
== END 2023-08-23 03:47 | disposition home or self-care (01) ==
PROVIDERS: PCP Nurse Practitioner Family; Visit Provider Nurse Practitioner Family
DX: Z00.00 Encounter for general adult medical examination without abnormal findings (principal)
CPT/HCPCS: 36415; 80048; 80061; 84443

== ENCOUNTER → 2023-12-14 04:12 | Outpatient (CLI) | payer BC, SELFPAY ==
--- NOTE | 2023-12-14 07:15 | DI.MAMMO_ITS ---
Exam(s) MAMMO SCREENING EXAM: MAMMO SCREENING CLINICAL HISTORY: screening,z12.39 TECHNIQUE: Bilateral full field digital CC and MLO mammographic images were obtained with 3D tomosyn thesis and utilizing computer aided detection (CAD). COMPARISON: Available for comparison. FINDINGS: Masses/Architectural Distortion: Stable well-circumscribed nodules are seen in the breast. No new no dules are seen. No areas of architectural distortion are seen. Microcalcifications: No suspicious pleomorphic-type are seen. Skin Thickening/Nipple Retraction: None. IMPRESSION: 1. No significant interval change with no specific features of malignancy noted. 2. Unless there is more urgent need, screening mammography is recommended, as per [employer] guidelines. BI-RADS Category 2 - Benign Findings Breast Density - Category A - Almost entirely fatty Breast density category C or D implies that the patient has dense breast tissue. Dense breast tissue is very common and is not abnormal but dense breast tissue can make it harder to find cancer on a ma mmogram. Also, dense breast tissue may increase their breast cancer risk. This information about the result of the mammogram report was provided to the patient to raise their awareness. Use this report when you speak with the patient about their risks for breast cancer, which includes their family hist ory. At that time, you may recommend for more screening tests (Ultrasound or MRI) as they might be us eful based on their risk. A negative radiographic report should not delay biopsy if a dominant or clinically suspicious mass is present. Up to ten percent of cancers are not identified on mammography. A negative report may reinforce clinical impression. Adenosis and dense breasts may obscure an underlying neoplasm. False positive reports average 6 to 10%. Patient will receive a letter notifying them of these results.
== END ==
PROVIDERS: PCP Nurse Practitioner Family; Visit Provider Nurse Practitioner Family
DX: Z12.31 Encounter for screening mammogram for malignant neoplasm of breast (principal)
CPT/HCPCS: 77063; 77067

== ENCOUNTER 2024-01-26 11:06 | Outpatient (CLI) | payer BC, SELFPAY ==
--- NOTE | 2024-01-26 10:15 | DI.RAD_ITS ---
Exam(s) XR HAND RT COMPLETE EXAM: XR HAND RT COMPLETE CLINICAL HISTORY: thumb pain. TECHNIQUE: 2D digital imaging was performed of the right hand. Three images were obtained. AP, late ral and oblique views were obtained. COMPARISON: CR RIGHT HAND COMPLETE from 02/02/2017 FINDINGS: BONES: No acute fracture is present. No bony destructive lesion is seen. JOINTS: No dislocation present. There are mild degenerative changes seen in the hand characterized by joint space narrowing and osteophytes. The findings are seen at the 1st CMC joint and the interphal angeal joints of the fingers. SOFT TISSUE: Normal. IMPRESSION: Mild degenerative changes seen at the 1st CMC joint. DATA REPOSITORY: RADIATION DOSE DELIVERED:
== END 2024-01-26 11:07 | disposition home or self-care (01) ==
LOC: DIORS 11:06
PROVIDERS: PCP Nurse Practitioner Family; Visit Provider Physician Assistant
DX: M79.644 Pain in right finger(s) (principal)
CPT/HCPCS: 73130

== ENCOUNTER 2024-02-07 04:55 | Outpatient (CLI) | payer BC, SELFPAY ==
[2024-02-15 16:23] LABS: HBs Antibody, Quant <3.1 mIU/mL (See Note); Hep B Surface Ab Negative (See Note); Hepatitis B Core Antibody Negative (Negative); Hepatitis B Surface Antigen Negative (Negative)
== END 2024-02-07 04:56 | disposition home or self-care (01) ==
LOC: LBO 04:55
PROVIDERS: PCP Nurse Practitioner Family; Visit Provider Nurse Practitioner Family
DX: Z11.59 Encounter for screening for other viral diseases (principal)
CPT/HCPCS: 36415; 86704; 86706; 87340

== ENCOUNTER 2024-06-11 18:37 | Outpatient (REF) | payer BC, SELFPAY ==
[2024-06-11 21:28] LABS: COMMENT (LAB VIEW ONLY) 109.46 mg/dL; Microalb ug/mg Crea 17.6 ug/mg Cr
== END 2024-06-11 18:38 | disposition home or self-care (01) ==
LOC: LBN 18:37
PROVIDERS: PCP Nurse Practitioner Family; Visit Provider Nurse Practitioner Family
DX: E11.9 Type 2 diabetes mellitus without complications (principal)
CPT/HCPCS: 82043; 82570

== ENCOUNTER 2024-09-04 00:49 | Outpatient (CLI) | payer BC, SELFPAY ==
[2024-09-04 12:24] LABS: Abs Immature Grans 0.05 10^3/uL (0.0-0.06); Absolute Basophil Count 0.06 10^3/uL (0.0-0.2); Absolute Eosinophil Count 0.42 10^3/uL (0.0-0.7); Absolute Lymphocyte Count 1.94 10^3/uL (1.2-3.4); Absolute Monocyte Count 0.65 10^3/uL (0.1-0.8); Absolute Neutrophil Count 4.75 10^3/uL (1.2-6.7); Basophils % 0.8 %; Eosinophils % 5.3 %; HCT 45.8 % (36.0-46.0); HGB 14.4 g/dL (11.2-15.7); Immature Grans % 0.6 %; Lymphocytes % 24.7 %; MCH 29.5 pg (27.0-33.0); MCHC 31.4 % (32.0-36.0); MCV 94 fL (80-95); MPV 10.3 fL (8.0-11.0); Monocytes % 8.3 %; Neutrophils % 60.3 %; Platelet Count 218 10^3/uL (130-400); RBC 4.88 10^6/uL (3.93-5.22); RDW 14.4 % (11.7-14.6); RDW-SD 49.8 fL; WBC 7.87 10^3/uL (4.4-10.8)
[2024-09-04 12:50] LABS: ALT 71 U/L (14-59); AST 61 U/L (15-37); Albumin 3.3 g/dL (3.4-5.0); Alkaline Phosphatase 77 U/L (46-116); Anion Gap 4.2 mmol/L (3-11); BUN 9 mg/dL (7-18); Bilirubin, Total 0.46 mg/dL (0.2-1.0); CO2 32.8 mmol/L (21.0-32.0); CREATININE 0.8 mg/dL (0.55-1.02); Calcium 9.4 mg/dL (8.5-10.1); Chloride 105 mmol/L (98-107); Glucose 170 mg/dL (74-106); Sodium 142 mmol/L (136-145); TSH (W/Ref FT4) 0.72 uIU/mL (0.36-3.74); Total Protein 7.7 g/dL (6.4-8.2)
[2024-09-04 13:27] LABS: Hemoglobin A1C 8.6 % (<5.7)
== END 2024-09-04 00:50 | disposition home or self-care (01) ==
PROVIDERS: PCP Nurse Practitioner Family; Visit Provider Nurse Practitioner Family
DX: E11.40 Type 2 diabetes mellitus with diabetic neuropathy, unspecified (principal); E03.9 Hypothyroidism, unspecified
CPT/HCPCS: 36415; 80053; 83036; 84443; 85025

== ENCOUNTER 2025-05-23 12:28 | Outpatient (REF) | payer MEDICAID, SELFPAY ==
--- NOTE | 2025-05-23 11:40 | PAPFT_PTH ---
PATIENT: Cathleen Carter LOC: [facility] U#:[id number] AGE/SX: 60/F ROOM: RE05/23/[address]: PAWAN Iqbal : 1965 BED: DIS: 05/23/2025 SPEC #: [id number] RECD: 05/23/25 18:05 STATUS: MYLES NG #: [id number] JI: 05/23/25 11:[address]: Ernestina Rey DEPT: [facility] Cytology RECD BY: Deepa Novoa Tissues: 1 - CX/ENDOCX FOR PAP SMEARS Procedures: PAP THIN PREP/UVM Screening HPV DNA PROBE Comments: [id number] (HPV 16 & 18/45)
== END 2025-05-23 12:29 | disposition home or self-care (01) ==
LOC: LBN 12:28
PROVIDERS: PCP Nurse Practitioner Family; Visit Provider Nurse Practitioner Family
DX: Z12.4 Encounter for screening for malignant neoplasm of cervix (principal)
CPT/HCPCS: 88142; 87624

== ENCOUNTER 2025-05-27 06:12 | Day surgery (SDC) | payer MEDICAID, SELFPAY ==
[2025-05-27 06:15] VITALS: BP 147/83; PULSE 104; RESP 16; TEMP 36.5; O2SAT 95
[2025-05-27] MEDS: Lactated Ringers 1,000 ML 80 ML IV (06:50)
--- NOTE | 2025-05-27 07:09 | ANES.PREOP_ITS ---
General Info Date of Service Date Performed: 05/27/25 Height: 4 ft 11.5 in Weight: 134 kg Body Mass Index (BMI): 58.6 Surgical Procedure: Operation Date: 05/27/25 07:35 Proposed Procedure Side Surgeon p Colonoscopy Tessie Montalvo MD Meds Allergies and Home Medications Allergies Allergy/AdvReac Type Severity Reaction Status Date / Time empagliflozin (From AdvReac Intermediate Yeast Verified 05/27/25 06:32 Jardiance) infections Home Medication ?Medication ?Instructions ?Recorded aspirin 81 mg tablet,delayed 81 mg PO DAILY #30 tabs 0 04/27/21 release lisinopril 10 mg tablet 10 mg PO DAILY #90 tabs 08/02 10/23 levothyroxine 125 mcg tablet 125 mcg PO DAILY #90 tabs 09/06/24 omeprazole 20 mg capsule,delayed 20 mg PO DAILY #90 ta bs 01/22/25 release glipizide 10 mg tablet 10 mg PO DAILY #90 tabs 03/01 10/23 bisacodyl 5 mg tablet,delayed 5 mg PO ONCE colonscopy bowel prep 04/03/25 release (Dulcolax (bisacodyl)) #4 tabs lidocaine 5 % topical patch 1 patch topical DAILY PRN pain #30 04/03/25 ea metformin 750 mg tablet,extended 750 mg PO DAILY #90 t abs 04/03/25 release 24 hr polyethylene glycol 3350 17 238 g PO ONCE colonoscopy prep 04/03/25 gram/dose oral powder #238 grams blood sugar diagnostic (FreeStyle #200 ea 04/26/25 Lite Strips) blood-glucose meter (FreeStyle #1 ea 04/26/25 Lite Meter kit) tirzepatide 15 mg/0.5 mL 15 mg (0.5 mL) subcut QWEEK #2 mL 05/13/25 subcutaneous pen injector (Dwight) vibegron 75 mg tablet (Gemtesa) 75 mg PO DAILY #90 tab s 05/22/25 lancets 33 gauge #200 ea 05/23/25 pravastatin 80 mg tablet 80 mg PO DAILY #90 tabs 05/02 10/23 Current Visit Medications: Current Medications Generic Name Dose Route Start Last Admin Trade Name Freq PRN Reason Stop Dose Admin Ringer's Solution 1,000 mls @ 80 mls/hr 05/27/25 06:00 05/27/25 06:50 IV 05/27/25 23:59 80 mls/hr INFUSION MORAIMA Administration IV Miscellaneous Supplies 1 each 05/27/25 06:00 Iv Access IV 05/27/25 23:59 DIRECTED MORAIMA Sodium Biphosphate/Sodium Phosphate 133 ml 05/27/25 06:00 Na Phosphate Enema-Adult 133 Ml Btl ND 05/27/25 23:59 DIRECTED PRN Sodium Chloride 0 ml 05/27/25 06:00 Normal Saline Flush 10 Ml Syr IV 05/27/25 23:59 PRN PRN Sodium Chloride 0 ml 05/27/25 06:00 Normal Saline 10 Ml Vial IJ 05/27/25 23:59 DIRECTED PRN Sterile Water 0 ml 05/27/25 06:00 Water,Injection,Sterile 10 Ml Vial IJ 05/27/25 23:59 DIRECTED PRN PFSH Active Problems Active Problems: Problem Status Onset Code Metabolic dysfunction-associated steatotic liver disease (MASLD) Chronic K76.0 Lipoma Chronic D17.9 Arthritis of carpometacarpal (CMC) joint of right thumb Chronic M18.11 Overactive bladder Chronic N32.81 Urge urinary incontinence Chronic N39.41 Lymphedema Chronic I89.0 Hyperlipidemia Chronic E78.5 Hypertension Chronic I10 BPPV (benign paroxysmal positional vertigo) Chronic H81.10 GERD (gastroesophageal reflux disease) Chronic K21.9 Obesity, morbid, BMI 50 or higher Chronic E66.01 Type 2 diabetes mellitus with diabetic neuropathy Chronic E11.40 Peripheral venous insufficiency Chronic I87.2 Osteoarthritis of knee Chronic M17.10 Hypothyroidism Chronic E03.9 Medical History Medical History Serrated adenoma of colon (07/21/15) Surgical History Surgical History S/P dilation and curettage pt denies S/P trigger finger release (06/08/22) Both thumbs Status post right foot surgery Right heel surgery History of carpal tunnel surgery of left wrist History of repair of anterior cruciate ligament of left knee Hx of arthroscopy of right knee Tobacco Smoking/Tobacco Use Status: Former Tobacco Use Passive smoking exposure: No Second hand exposure: No Alcohol Alcohol Intake: current Alcohol intake frequency: holidays/special occasions only Substance Use Substance use: Never Substance use type: does not use Vital Signs and Lab Results Vital Signs Most Recent Vital Signs in EMR: Most Recent Vital Signs Temp Pulse Resp BP Pulse Ox 36.5 C 104 H 16 147/83 H 95 05/27/25 06:15 05/27/25 06:15 05/27/25 06:15 05/27/25 06:15 05/27/25 06:15 Point of Care Results Point of Care Results: Finger Stick Blood Glucose 164 05/27/25 06:42 Anesthesia Assessment and Plan Anesthesia History Personal History: PONV Family History: No Family History of Anesthesia Complications Exercise Tolerance Exercise Tolerance: Metabolic Equivalents>4 Pertinent Negatives Pertinent Negatives: No Symptoms of GERD Cardiac & Pulmonary Exam Cardiac Exam: Normal S1/S2 Heart Sounds Pulmonary Exam: Clear Bilateral Breath Sounds Implantable Cardiac Device Does patient have a Pacemaker or an ICD?: No Airway Exam Known Difficult Airway: No Mallampati Class: 2 Mouth Opening: Normal (> 3cm) Thyromental Distance: Greater than 3 cm Neck Range of Motion: Full ROM Neck Circumference: Thick Teeth Condition: Generalized Poor Dentition ASA Classification ASA Score: ASA 3 Emergency Case?: No NPO Status NPO Status: NPO Clears >2 hours, Solids >8 hours Anesthesia Plan Resuscitation Status: Full Code Anesthesia Technique: General Anesthesia Airway Planned: Natural Airway Monitors Used: Standard Monitors
[2025-05-27 07:13] VITALS: BMI 58.6
--- NOTE | 2025-05-27 07:17 | W.PM.HP.N ---
Date of service: 05/27/25 Time of Service: 07:17 Assessment and Plan Assessment and plan (1) Family history of colon cancer requiring screening colonoscopy: Status: Acute Assessment and plan: Proceed w screening colonoscopy. consent reviewed in office and signed. (2) Obesity, morbid, BMI 50 or higher: Status: Chronic Assessment and plan: BMI <60 can be accomodated. (3) Type 2 diabetes mellitus with diabetic neuropathy: Status: Chronic Assessment and plan: As long as fingerstick glucose remains <250 okay to proceed. History of Present Illness Narrative: This is a 60-year-old female who is due for colorectal cancer screening. Mother of colon cancer. HPI from office visit in april is as follows: ...Her last colonoscopy did not have any precancerous polyps, but the colonoscopy before that did show serrated adenoma. She is concerned about her risk of colon and rectal cancer because her mother of colon cancer. At least 6 of her mothers siblings also have had colon and rectal cancer. Her mother did not have genetic testing. The patient is concerned about the family history in regard to the risk of colon and rectal cancer for her daughters who are in their 20s or 30s. The patient denies any digestive symptoms that include blood in the stool unplanned weight loss change in stool patterns. There is no history of Crohn's disease or ulcerative colitis. There is no history of uterine or ovarian cancer. The patient is a type II diabetic who has not had excellent control. At her last visit with me January 30, she was waiting on access to mounjaro which she has since started. Blood glucose range is now 187-225 on a regular basis. She is morbidly obese and uses an assistive device for walking. She is unable to have screening colonoscopy closer to home as the facility her doctor inquired about cannot accommodate her weight. She has received care at [facility] but their schedule is booked out too far. The patient's BMI is 58-59. [facility] All Active Problems (Updated 05/27/25 @ 07:19 by Tessie Montalvo MD) Family history of colon cancer requiring screening colonoscopy (Acute) Metabolic dysfunction-associated steatotic liver disease (MASLD) (Chronic) Lipoma (Chronic) Arthritis of carpometacarpal (CMC) joint of right thumb (Chronic) Overactive bladder (Chronic) Urge urinary incontinence (Chronic) Lymphedema (Chronic) Hyperlipidemia (Chronic) Hypertension (Chronic) BPPV (benign paroxysmal positional vertigo) (Chronic) GERD (gastroesophageal reflux disease) (Chronic) Obesity, morbid, BMI 50 or higher (Chronic) Type 2 diabetes mellitus with diabetic neuropathy (Chronic) Peripheral venous insufficiency (Chronic) Osteoarthritis of knee (Chronic) Hypothyroidism (Chronic) Medical History Serrated adenoma of colon (07/21/15) Surgical History S/P dilation and curettage pt denies S/P trigger finger release (06/08/22) Both thumbs Status post right foot surgery Right heel surgery History of carpal tunnel surgery of left wrist History of repair of anterior cruciate ligament of left knee Hx of arthroscopy of right knee Family History Mother , 63 from colon cancer Colon cancer Father , from Cdiff Hypertension Pulmonary embolism Sister Hypothyroidism Sister Rheumatoid arthritis Hypothyroidism Daughter Depression Daughter Palindromic rheumatism Maternal Grandfather No problems noted. Maternal Grandmother No problems noted. Paternal Grandfather No problems noted. Paternal Grandmother No problems noted. Maternal Aunt Colon cancer Maternal Uncle Colon cancer Social History Smoking/Tobacco Use Status: Former Tobacco Use tobacco type: cigarettes Quit Date: 07/24/92 Tobacco: How many years used: 10 Quit status: quit date established Second Hand Exposure: No Smoking risk assessment performed?: Yes Alcohol Intake: current Alcohol Intake frequency: holidays/special occasions only Drug use: Never Substance use type: does not use Caregiver/Support person: No Household members: spouse Housing: apartment Communication Needs: None Do you need help understanding health information?: Never Pets and animals: Yes Pets and animals: cat(s) Sexually active: No Do you think of yourself as: straight/heterosexual Current gender identity: female What is your relationship status?: How often do you talk on the phone with friends or family?: three or more times per week How often do you get together with friends or relatives?: twice per week How often do you attend catholic or hinduism services?: decline to answer Do you belong to any clubs or organized social groups?: no Panel score (0-1 are the most socially isolated patients): 2 What type of physical activity do you participate in: none Frequency: does not exercise Marielena/Hoahaoism: Gnosticism Special marielena needs: No Seatbelt use: always Drive intox or ride w/intox 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 Do you feel safe at home: Yes Do you feel safe in your relationship?: Yes Female Reproductive History Menstrual Menopause type: natural Meds Allergies and Home Medications Allergies Allergy/AdvReac Type Severity Reaction Status Date / Time empagliflozin (From AdvReac Intermediate Yeast Verified 05/27/25 06:32 Jardiance) infections Home Medications ?Medication ?Instructions ?Recorded ?Confirmed ?Type aspirin 81 mg tablet,delayed 81 mg PO DAILY #30 tabs 04/27/21 05/24/25 Rx release lisinopril 10 mg tablet 10 mg PO DAILY #90 tabs 08/23/24 05/27/25 Rx levothyroxine 125 mcg tablet 125 mcg PO DAILY #90 tabs 09/06/24 05/27/25 Rx omeprazole 20 mg capsule,delayed 20 mg PO DAILY #90 tabs 01/22/25 05/27/25 Rx release glipizide 10 mg tablet 10 mg PO DAILY #90 tabs 03/13/25 05/27/25 Rx bisacodyl 5 mg tablet,delayed 5 mg PO ONCE colonscopy bowel prep 04/03/25 05/27/25 Rx release (Dulcolax (bisacodyl)) #4 tabs lidocaine 5 % topical patch 1 patch topical DAILY PRN pain #30 04/03/25 05/27/25 Rx ea metformin 750 mg tablet,extended 750 mg PO DAILY #90 tabs 04/03/25 05/27/25 Rx release 24 hr polyethylene glycol 3350 17 238 g PO ONCE colonoscopy prep 04/03/25 05/27/25 Rx gram/dose oral powder #238 grams blood sugar diagnostic (FreeStyle #200 ea 04/26/25 05/23/25 Rx Lite Strips) blood-glucose meter (FreeStyle #1 ea 04/26/25 05/23/25 Rx Lite Meter kit) tirzepatide 15 mg/0.5 mL 15 mg (0.5 mL) subcut QWEEK #2 mL 05/13/25 05/24/25 Rx subcutaneous pen injector (Dwight) vibegron 75 mg tablet (Gemtesa) 75 mg PO DAILY #90 tabs 05/22/25 05/27/25 Rx lancets 33 gauge #200 ea 05/23/25 05/23/25 Rx pravastatin 80 mg tablet 80 mg PO DAILY #90 tabs 05/23/25 05/27/25 Rx Exam Narrative Exam Narrative: awake, NAD eomi, MMM midline trachea, neck is symmetric PULM: normal resp effort, equal chest rise with respiration, no wheezing audible CARDIAC: normal PMI, no jvd, regular rate, normal perfusion abdomen is nondistended. extremities are without deformity, normal movement of all four extremities speech is clear and coherent mood and affect are congruent, no focal neurological deficits skin without rash Results Last Vital Signs Temp 97.7 F 05/27/25 06:15 Pulse 104 H 05/27/25 06:15 Resp 16 05/27/25 06:15 BP 147/83 H 05/27/25 06:15 Pulse Ox 95 05/27/25 06:15 Time Spent Time spent with Patient: <40 minutes Time was spent: preparing to see the patient(eg.review tests), counseling the patient and care coordination
--- NOTE | 2025-05-27 07:37 | W.PM.DSUDISC ---
Date of service: 05/27/25 Discharge Plan Disposition Patient Disposition: Home Condition: Stable Discharge Details Reason For Visit: screening colonoscopy in high risk person Attending Provider: Tessie Montalvo Primary Care Provider: Ernestina Rey Home Meds and New Rx's Prescriptions: Continued aspirin 81 mg tablet,delayed release (DR/EC) 81 mg PO DAILY Qty: 30 0RF Rx Instructions: not sent levothyroxine 125 mcg tablet 125 mcg PO DAILY Qty: 90 3RF glipizide 10 mg tablet 10 mg PO DAILY Qty: 90 3RF pravastatin 80 mg tablet 80 mg PO DAILY Qty: 90 3RF (DME) lancets 33 gauge misc See Rx Instructions .ROUTE .MEDSUPPLY Qty: 200 4RF Patient Comments: Needs lancets that fit with Lifestyle Lite 33 gauge Rx Instructions: Check blood sugar twice a day lisinopril 10 mg tablet 10 mg PO DAILY Qty: 90 3RF omeprazole 20 mg capsule,delayed release(DR/EC) 20 mg PO DAILY Qty: 90 3RF lidocaine 5 % adhesive patch,medicated 1 patch TP DAILY PRN (Reason: pain) Qty: 30 3RF Rx Instructions: Leave on most painful area for up to 12hrs metformin 750 mg tablet extended release 24 hr 750 mg PO DAILY Qty: 90 3RF (DME) FreeStyle Lite Strips Strip See Rx Instructions .Route Qty: 200 3RF Rx Instructions: Check blood sugar twice a day (DME) blood-glucose meter [FreeStyle Lite Meter] Kit See Rx Instructions .Route Qty: 1 3RF Rx Instructions: Check blood sugar twice a day Mounjaro 15 mg/0.5 mL pen injector 15 mg subcut QWEEK Qty: 2 12RF Gemtesa 75 mg tablet 75 mg PO DAILY Qty: 90 3RF Discontinued bisacodyl [Dulcolax (bisacodyl)] 5 mg tablet,delayed release (DR/EC) 5 mg PO ONCE Qty: 4 0RF Rx Instructions: take per colonoscopy instructions polyethylene glycol 3350 17 gram/dose powder 238 g PO ONCE Qty: 238 0RF Rx Instructions: take per colonoscopy instructions Discharge Instructions Additional Instructions: Normal colon without any polyps. Next screening colonoscopy will be due in 5 years due to your family history. Diverticulosis of the sigmoid colon noted, no diverticulitis (infection) present. Take a daily fiber supplement and eat a high fiber diet to prevent problems and progression of diverticulosis. Activity:: Activity as Tolerated Diet:: As Tolerated Discharge Orders Discharge Orders: Discharge Order (Routine); Ordered 05/27/25 Ordered By: Tessie Montalvo DS: Diagnosis Discharge Diagnosis (1) Family history of colon cancer requiring screening colonoscopy: Status: Acute (2) Obesity, morbid, BMI 50 or higher: Status: Chronic (3) Type 2 diabetes mellitus with diabetic neuropathy: Status: Chronic
[2025-05-27 07:57] VITALS: BP 118/70; PULSE 102; RESP 18; TEMP 36.2; O2SAT 94
--- NOTE | 2025-05-27 08:11 | W.COLOREPORT ---
Date of service: 05/27/25 Time of Service: 08:11 Colonoscopy Report Date of procedure: 05/27/25 Pre-op diagnosis general: Screening for colorectal cancer Post-op diagnosis procedure note: same Procedure: Colonoscopy Surgeon: Tessie Montalvo Anesthesia Type: General:No Airway Estimated blood loss (mL): 0 Pathology: none sent Complications: None Indications: screening for colorectal cancer Mother of colon cancer Prep: Miralax/Dulcolax (excellent) Procedure Description: Informed consent was obtained and the patient was taken to the procedure area. The patient was placed in left lateral decubitus position on the procedure table. Timeout was performed. Anesthesia was induced. A lubricated colonoscope was inserted through the anus and passed to the cecum. The cecum was identified by the ileocecal valve and the appendiceal orifice. The scope was then slowly withdrawn and the colonic and rectal mucosa examined. There are no colon or rectal mass lesions, polyps, AVMs. There is no inflammatory change. Mild sigmoid diverticulosis was seen. The scope was retroflexed in the anorectal junction examined. Uncomplicated internal hemorrhoids present. Assessment and plan: Screening for colorectal cancer Family history of colon cancer in mother diverticulosis of sigmoid colon Normal colonoscopy. Next screening colonoscopy will be due in 5 years due to family history. Fiber supplement recommended.
[2025-05-27 08:13] VITALS: BP 128/78; PULSE 93; RESP 16; TEMP 36.3; O2SAT 95
--- NOTE | 2025-05-27 10:14 | W.ANESPOSTOP ---
Postoperative Evaluation Date, Time and Location Date Performed: 05/27/25 Time Performed: 08:20 Patient Location: Day Surgery Unit Vital Signs Most Recent Imported Vital Signs: Most Recent Vital Signs Temp Pulse Resp BP Pulse Ox 36.3 C L 93 H 16 128/78 95 05/27/25 08:13 05/27/25 08:13 05/27/25 08:13 05/27/25 08:13 05/27/25 08:13 Pain Score Most Recent Pain Score: Most Recent Pain Score Pain Level 0 05/27/25 08:13 Assessment Mental Status: Awake (Alert & Oriented to Patient Baseline) Airway and Respiratory Function: Patent airway with normal (patient baseline) respiratory exam Cardiovascular Function: Hemodynamically Stable Hydration Status: Adequately Hydrated Nausea & Vomiting: No Nausea or Vomiting Pain: Pt. Denies Any Pain Peripheral Nerve Block: Patient did not receive a nerve block
== END 2025-05-27 08:30 | disposition home or self-care (01) ==
PROVIDERS: PCP Nurse Practitioner Family; Visit Provider Surgery
PROC: 0DJD8ZZ Inspection of Lower Intestinal Tract, Via Natural or Artificial Opening Endoscopic (ICD-10-PCS; CPT 45378; principal; 2025-05-27 07:30)
DX: Z12.11 Encounter for screening for malignant neoplasm of colon (principal); Z80.0 Family history of malignant neoplasm of digestive organs; E66.01 Morbid (severe) obesity due to excess calories; E11.40 Type 2 diabetes mellitus with diabetic neuropathy, unspecified; K64.8 Other hemorrhoids
CPT/HCPCS: 45378; J2704